=== PATIENT | female | born 1980 | race Caucasian/White ===

== ENCOUNTER 2017-11-16 11:25 | Emergency (ER) | payer OTHER ==
[2017-11-16 12:02] LABS: BASOPHILS # (AUTO) 0.1 10^3/uL (0.0-0.1); BASOPHILS % (AUTO) 0.8 %; EOSINOPHILS # (AUTO) 0.1 10^3/uL (0.0-0.7); EOSINOPHILS % (AUTO) 1.4 %; HGB - HEMOGLOBIN 13.8 g/dL (12.0-16.0); LYMPHOCYTES # (AUTO) 1.7 10^3/uL (1.5-3.5); LYMPHOCYTES % (AUTO) 19.8 %; MEAN CORPUSCULAR HEMOGLOBIN 29.9 pg (27.0-31.0); MEAN CORPUSCULAR HGB CONC 34.1 g/dL (32.0-36.0); MEAN CORPUSCULAR VOLUME 87.6 fL (81.0-99.0); MEAN PLATELET VOLUME 8.1 fL (7.9-10.8); MONOCYTES # (AUTO) 0.6 10^3/uL (0.0-1.0); MONOCYTES % (AUTO) 6.6 %; NEUTROPHILS # (AUTO) 6.3 10^3/uL (1.5-6.6); NEUTROPHILS % (AUTO) 71.4 %; PLT - PLATELET COUNT 187 10^3/uL (130-450); RED BLOOD COUNT 4.62 10^6/uL (4.20-5.40); RED CELL DISTRIBUTION WIDTH 13.7 % (12.0-15.0); WHITE BLOOD COUNT 8.8 x10^3/uL (4.8-10.8)
[2017-11-16 12:14] LABS: ALBUMIN 3.9 g/dL (3.2-5.5); ALBUMIN/GLOBULIN RATIO 1.1 (1.0-2.2); BILIRUBIN,TOTAL 0.7 mg/dL (0.2-1.0); CALCIUM 8.8 mg/dL (8.5-10.3); CREATININE 0.7 mg/dL (0.4-1.0); TOTAL PROTEIN 7.3 g/dL (6.7-8.2)
--- NOTE | 2017-11-16 12:28 | XRAY Report ---
Procedure Date: 11/16/2017 Accession Number: [id number] / [id number] Procedure: XR - Chest 2 View X-Ray CPT Code: 89762 FULL RESULT: EXAM: CHEST RADIOGRAPHY EXAM DATE: 11/16/2017 12:16 PM. CLINICAL HISTORY: Chest pain. COMPARISON: None. TECHNIQUE: 2 views. FINDINGS: Lungs/Pleura: No focal opacities evident. No pleural effusion. No pneumothorax. Normal volumes. Mediastinum: Heart and mediastinal contours are unremarkable. Other: None. IMPRESSION: Normal 2-view chest radiography. [facility]
--- NOTE | 2017-11-16 14:09 | ED Physician Documentation ---
PD HPI ABD PAIN - History obtained from History obtained from: Patient - History of Present Illness Timing - onset: Other (She has been sick for about a week with sore throat and pain radiating basically from the sternal notch up to her chin with swollen submandibular glands, aches but no fevers. She has not had any other upper respiratory symptoms, no cough or runny nose. No recent travel or sick contacts.) <Andrew Collins - Last Filed: 11/16/17 15:13> - History obtained from History obtained from: Patient <Sudhir Edwards - Last Filed: 11/17/17 08:14> - Stated complaint Stated Complaint: CP/AB/BACK PX - Chief complaint Chief Complaint: Cardiac Review of Systems Constitutional: reports: Myalgias, Fatigue. denies: Fever, Chills Ears: denies: Ear pain Nose: denies: Rhinorrhea / runny nose, Congestion Throat: reports: Sore throat Cardiac: reports: Chest pain / pressure Respiratory: denies: Dyspnea, Cough GI: denies: Abdominal Pain, Nausea <Andrew Collins - Last Filed: 11/16/17 15:13> PD PAST MEDICAL HISTORY <Andrew Collins - Last Filed: 11/16/17 15:13> <Sudhir Edwards - Last Filed: 11/17/17 08:14> - Present Medications Home Medications: Ambulatory Orders Medication Instructions Recorded Confirmed Ibuprofen [Motrin] 800 mg PO Q8H PRN #30 tablet 11/16/17 Omeprazole [PriLOSEC] 11/16/17 - Allergies Allergies/Adverse Reactions: Allergies Allergy/AdvReac Type Severity Reaction Status Date / Time No Known Drug Allergies Allergy Verified 11/16/17 11:40 PD ED PE NORMAL - Vitals Vital signs reviewed: Yes - General General: Alert and oriented X 3, No acute distress - HEENT HEENT: PERRL, EOMI, Ears normal, Pharynx benign (Mild strawberry tongue but the posterior oropharynx looks benign) - Neck Neck: Supple, no meningeal sign, Other (Mild anterior cervical adenopathy) - Cardiac Cardiac: RRR, No murmur - Respiratory Respiratory: No respiratory distress, Clear bilaterally - Abdomen Abdomen: Soft, Non tender - Derm Derm: No rash - Extremities Extremities: No edema, No calf tenderness / cord - Neuro Neuro: Alert and oriented X 3, Normal speech <Andrew Collins M - Last Filed: 11/16/17 15:13> Results - Rads (name of study) 2v chest Radiology: EMP read contemporaneously (normal) <Andrew Collins - Last Filed: 11/16/17 15:13> - Vitals Vitals: Vital Signs - 24 hr 11/16/17 11/16/17 11/16/17 11:38 12:56 15:07 Temperature 37 C 36.8 C Heart Rate 107 H 97 87 Respiratory 20 18 17 Rate Blood Pressure 125/82 H 120/73 109/76 O2 Saturation 96 98 97 Oxygen O2 Source Room air - Labs Labs: Microbiology 11/16/17 14:20 Group A Strep Throat Culture - Final Throat MIXED OROPHARYNGEAL ANGELICA PRESENT. NO BETA STREP PRESENT IN CULTURE. Laboratory Tests 11/16/17 11/16/17 11/16/17 11:52 11:52 11:52 WBC 8.8 RBC 4.62 Hgb 13.8 Hct 40.5 MCV 87.6 MCH 29.9 MCHC 34.1 RDW 13.7 Plt Count 187 MPV 8.1 Neut # (Auto) 6.3 Lymph # (Auto) 1.7 [place] # (Auto) 0.6 Eos # (Auto) 0.1 Baso # (Auto) 0.1 Absolute Nucleated RBC 0.00 Nucleated RBC % 0.0 Sodium 136 Potassium 3.2 L Chloride 103 Carbon Dioxide 24 Anion Gap 9.0 BUN 15 Creatinine 0.7 Estimated GFR (MDRD) 94 Glucose 107 H Calcium 8.8 Total Bilirubin 0.7 AST 20 ALT 16 Alkaline Phosphatase 66 Troponin I < 0.04 Total Protein 7.3 Albumin 3.9 Globulin 3.4 Albumin/Globulin Ratio 1.1 Lipase 25 Infectious [place] Assay Group A Strep Rapid 11/16/17 11/16/17 11:52 14:20 WBC RBC Hgb Hct MCV MCH MCHC RDW Plt Count MPV Neut # (Auto) Lymph # (Auto) [place] # (Auto) Eos # (Auto) Baso # (Auto) Absolute Nucleated RBC Nucleated RBC % Sodium Potassium Chloride Carbon Dioxide Anion Gap BUN Creatinine Estimated GFR (MDRD) Glucose Calcium Total Bilirubin AST ALT Alkaline Phosphatase Troponin I Total Protein Albumin Globulin Albumin/Globulin Ratio Lipase Infectious [place] Assay NEGATIVE Group A Strep Rapid Negative PD MEDICAL DECISION MAKING <Andrew Collins - Last Filed: 11/16/17 15:13> <Sudhir Edwards - Last Filed: 11/17/17 08:14> - ED course ED course: Overall the sounds like a viral illness with sore throat, body aches etc. Because of the chest pain complaint we did a workup with on that without relevant findings. (Andrew Collins) - Sepsis Event Vital Signs: Vital Signs - 24 hr 11/16/17 11/16/17 11/16/17 11:38 12:56 15:07 Temperature 37 C 36.8 C Heart Rate 107 H 97 87 Respiratory 20 18 17 Rate Blood Pressure 125/82 H 120/73 109/76 O2 Saturation 96 98 97 Oxygen O2 Source Room air Departure - Departure Record reviewed to determine appropriate education?: Yes <Andrew Collins - Last Filed: 11/16/17 15:13> <Sudhir Edwards - Last Filed: 11/17/17 08:14> - Departure Disposition: 01 Home, Self Care Clinical Impression: Viral syndrome Chest pain Qualifiers: Chest pain type: unspecified Qualified Code(s): R07.9 - Chest pain, unspecified Condition: Good Instructions: ED Viral Syndrome Prescriptions: Ibuprofen [Motrin] 800 mg PO Q8H PRN #30 tablet PRN Reason: PAIN &/OR FEVER Comments: Call your doctor to arrange a follow-up appointment, make the next available appointment. In the interim, return anytime if worse or if new symptoms develop. Discharge Date/Time: 11/16/17 15:38
[2017-11-16] MEDS ORDERED: SODIUM CHLORIDE 0.9% 1,000 ML IV ONE (14:34)
[2017-11-16] MEDS ORDERED: KETOROLAC 60 MG/2 ML VIAL IVP STA (14:53)
[2017-11-16 15:08] VITALS: BP 109/76
== END 2017-11-16 15:38 | disposition home or self-care (01) ==
LOC: ED 11:25
DX: B34.9 Viral infection, unspecified (principal); R07.9 Chest pain, unspecified
CPT/HCPCS: 36415; 71046; 80053; 83690; 84484; 85025; 86308; 87070; 87430; 93005; 96374; 99283

== ENCOUNTER 2017-11-26 11:38 | Outpatient (CLI) | payer OTHER ==
[2017-11-26 19:06] LABS: BASOPHILS # (AUTO) 0.1 10^3/uL (0.0-0.1); BASOPHILS % (AUTO) 0.8 %; EOSINOPHILS # (AUTO) 0.2 10^3/uL (0.0-0.7); EOSINOPHILS % (AUTO) 2.6 %; LYMPHOCYTES # (AUTO) 2.3 10^3/uL (1.5-3.5); LYMPHOCYTES % (AUTO) 29.3 %; MEAN CORPUSCULAR HEMOGLOBIN 29.8 pg (27.0-31.0); MEAN CORPUSCULAR HGB CONC 33.4 g/dL (32.0-36.0); MEAN CORPUSCULAR VOLUME 89.3 fL (81.0-99.0); MEAN PLATELET VOLUME 9.1 fL (7.9-10.8); MONOCYTES # (AUTO) 0.4 10^3/uL (0.0-1.0); MONOCYTES % (AUTO) 5.5 %; NEUTROPHILS # (AUTO) 4.9 10^3/uL (1.5-6.6); NEUTROPHILS % (AUTO) 61.8 %; PLT - PLATELET COUNT 301 10^3/uL (130-450); RED BLOOD COUNT 4.37 10^6/uL (4.20-5.40)
== END 2017-11-26 11:39 | disposition home or self-care (01) ==
LOC: LAB.WCP 11:38
PROVIDERS: ATTEND Physician Assistant Medical
DX: Z00.00 Encounter for general adult medical examination without abnormal findings (principal); R10.13 Epigastric pain
CPT/HCPCS: 36415; 84443; 85025

== ENCOUNTER 2021-04-09 08:00 | Outpatient (CLI) | payer OTHER | END 2021-04-09 23:59 | LOC: LAB.N 08:00 | PROVIDERS: ATTEND Physician Assistant | DX: U07.1 COVID-19 (principal) ==